=== PATIENT | male | born 1965 | race Caucasian/White ===

== ENCOUNTER 2019-10-07 21:07 | Emergency (ER) | payer SELFPAY ==
[2019-10-07 21:13] VITALS: BMI 28.1
[2019-10-07 21:17] VITALS: BP 182/128; PULSE 96; RESP 16; TEMP 36.3; O2SAT 94
--- NOTE | 2019-10-07 21:20 | XR_ITS ---
WS: [id number] Portable AP upright chest, 10/07/2019 Clinical Data: Burn Comparison: Chest, 12/07/2018. Findings: No nodules, masses or effusions are seen. The heart is normal. The pulmonary vascularity is not increased. No pneumonia or pneumothorax is seen. The aortic arch and descending aorta minimally tortuous. There is a small plate in the right mandible. XR/XR chest 1V portable [id number] Impression: Atherosclerosis.
[2019-10-07] MEDS: lactated ringers 1,000 ML 999 ML IV ×2 (21:26→21:35)
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
[2019-10-07 21:35] VITALS: RESP 20
[2019-10-07] MEDS: morphine 4 mg/mL SDV 1 mL IVP (21:35)
[2019-10-07] MEDS: ondansetron 2 mg/ML SDV 2 mL 4 MG IVP (21:36)
[2019-10-07 21:54] LABS: Basophils # 0.1 10^3/uL (0.0-0.1); Basophils % 0.5 %; Eosinophils # 0.1 10^3/uL (0.0-0.8); Eosinophils % 0.9 %; Hematocrit 46.3 % (42.0-52.0); Hemoglobin 15.1 g/dL (11.7-16.6); Lymphocytes # 1.6 10^3/uL (0.8-4.8); Lymphocytes % 15.7 %; Mean Corpuscular HGB Conc 32.6 g/dL (30.0-36.0); Mean Corpuscular Hemoglobin 30.6 pg (28.0-34.0); Mean Corpuscular Volume 93.9 fL (80-94); Mean Platelet Volume 10.2 fL (7.4-10.4); Monocytes # 0.6 10^3/uL (0.2-0.9); Monocytes % 6.1 %; Neutrophils # 7.8 10^3/uL (1.8-7.7); Neutrophils % 76.2 %; Nucleated Red Blood Cells % 0 %; Platelet Count 246 10^3/cmm (130-400); Red Blood Count 4.93 10^6/uL (4.1-5.3); Red Cell Distribution Width 13.6 % (12.1-15.1); White Blood Count 10.3 10^3/uL (4.0-10.0)
[2019-10-07 21:59] VITALS: BP 167/102; PULSE 100; RESP 20; O2SAT 97
[2019-10-07 22:05] LABS: ABG PCO2 40.6 mmHg (35-45); ABG PH Result 7.35 (7.35-7.45); Arterial Blood Gas Hematocrit 46.7 % (42-52); Base Excess ABG -2.9 mmol/L (-2.0-2.0); Blood Gas Sample Site Brachial, right; Blood Gas Sample Type Arterial; Carboxyhemoglobin 5.5 %THgb (0.4-20.1); HCO3 ABG 22.5 mmol/L (22-26); Ionized Calcium Level - ABG 1.2 mmol/L (1.1-1.4); Methemoglobin 0.9 % (0.4-1.5); Oxygen Device ROOM AIR; Oxygen Saturation ABG 96.2; Potassium Level - ABG 3.9 mmol/L (3.5-5.0); Total Hemoglobin 15.2 g/dL (14-18)
[2019-10-07 22:13] VITALS: BP 167/107; PULSE 92; RESP 20; O2SAT 95
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
== END 2019-10-07 22:15 | disposition short-term general hospital (02) ==
LOC: ER 21:58
PROVIDERS: Emergency Provider Emergency Medicine
DX: T20.09XA Burn of unspecified degree of multiple sites of head, face, and neck, initial encounter (principal); T21.01XA Burn of unspecified degree of chest wall, initial encounter; T22.00XA Burn of unspecified degree of shoulder and upper limb, except wrist and hand, unspecified site, initial encounter; X08.8XXA Exposure to other specified smoke, fire and flames, initial encounter; I10 Essential (primary) hypertension; I25.2 Old myocardial infarction; F17.210 Nicotine dependence, cigarettes, uncomplicated; Z98.61 Coronary angioplasty status
CPT/HCPCS: 12345; 36415; 36600; 71045; 80051; 82810; 83986; 85025; 96365; 96366; 96368; 96375; 99282; 99285; J2270; J2405

== ENCOUNTER → 2020-03-09 14:04 | Outpatient (BNVA) | payer MEDICAID, SELFPAY | PROVIDERS: Visit Provider Nurse Practitioner Family | DX: Z11.59 Encounter for screening for other viral diseases (principal); Z20.828 Contact with and (suspected) exposure to other viral communicable diseases; R05 Cough | CPT/HCPCS: 87635 ==

== ENCOUNTER → 2020-03-30 10:43 | Outpatient (BNVA) | payer MEDICAID, SELFPAY | PROVIDERS: Visit Provider Nurse Practitioner Family | DX: I10 Essential (primary) hypertension (principal); Z79.899 Other long term (current) drug therapy; Z12.5 Encounter for screening for malignant neoplasm of prostate; E78.5 Hyperlipidemia, unspecified; M79.642 Pain in left hand; Z12.11 Encounter for screening for malignant neoplasm of colon | CPT/HCPCS: 80053; 80061; 85025; G0103 ==

== ENCOUNTER → 2020-04-27 09:54 | Outpatient (BNVA) | payer SELFPAY | PROVIDERS: Visit Provider Surgery | DX: Z12.11 Encounter for screening for malignant neoplasm of colon (principal); Z20.828 Contact with and (suspected) exposure to other viral communicable diseases | CPT/HCPCS: 87635 ==

== ENCOUNTER 2020-05-03 07:24 | Day surgery (SDC) | payer MEDICAID, SELFPAY ==
[2020-04-28 14:31] VITALS: BMI 27.5
[2020-05-03 07:41] VITALS: BP 155/103; PULSE 62; RESP 18; TEMP 36.3; O2SAT 97
[2020-05-03] MEDS: sodium chloride 0.9% 1,000 ML 30 ML IV (07:54)
--- NOTE | 2020-05-03 08:31 | ANES.PREANE2 ---
Pre-Anesthetic Assessment Pre-Anesthetic Assessment: Height/Weight: Height 1.91 m Weight 99.79 kg Temp Pulse Resp BP Pulse Ox 97.3 F L 62 18 155/103 97 05/03/20 07:41 05/03/20 07:41 05/03/20 07:41 05/03/20 07:41 05/03/20 07:41 Preop Diagnosis: panendoscopy Proposed Procedure: Operation Date: 05/03/20 08:30 Proposed Procedures p Colonoscopy 60518 Z12.11(Not Applicable) - Rebel Larkin MD Familial anesthetic complications: None Was Beta James taken within 24 hours: Yes Last intake: Intake Last Liquid Date 05/02/20 Last Liquid Time 22:00 Last Solid Date 05/01/20 Last Solid Time 20:00 Social: Social History: Tobacco Exam: Pre-Anes Outpt Exam: alert, oriented x 3, clear to auscultation bilaterally and regular rate & rhythm Airway: Cervical ROM: WNL MP: 3 Additional comments: extremely poor dentition, visible decay, broken teeth, missing teeth Pulmonary: Pulmonary: COPD CV/HEM: CV/HEM: CAD and HTN Comments: PTCA 2 years ago -off plavix since ischemic cardiomyopathy Anesthetic Plan: ASA status: 3 Anesthesia: MAC Risk of > 500 ml blood loss (7ml/kg in children): No Meds/Allergies Current Medications: Current Medications Generic Name Dose Route Start Last Admin Trade Name Freq PRN Reason Stop Dose Admin Sodium Chloride 1,000 mls @ 30 ml s/hr 05/03/20 07:30 05/03/20 07:54 Sodium Chloride 0.9% IV 05/04/20 07:29 30 mls/hr .Q24H CELIA Administration PFSH Anesthesia PFSH: Medical History ASHD (arteriosclerotic heart disease) HTN (hypertension) Ischemic cardiomyopathy Myocardial infarction Surgical History H/O circumcision H/O craniotomy asiatic meningitis H/O inguinal hernia repair S/P PTCA (percutaneous transluminal coronary angioplasty) Family History Other CAD (coronary artery disease) Hypertension Denies family history of Diabetes Anesthesia complication Bleeding disorder Cancer Social History Smoking and tobacco status: current every day smoker Alcohol intake: current Alcohol intake frequency: 0-2 Drinks per Day Alcohol type: beer Adopted: No Caregiver/support person: No Lives independently: No Household members: spouse Marital status: History of recent travel: No Sexually active: Yes Current gender identity: Male Data Anesthesia Cardiac Studies: No Data to Display
--- NOTE | 2020-05-03 09:08 | W.PM.OPSFHP ---
Same Day Surgery H&P Indication for Procedure/HPI DATE OF PROCEDURE: May 03, 2020 CHIEF COMPLAINT/INDICATIONFOR SURGICAL PROCEDURE: EGD and colonoscopy PREOP DIAGNOSIS: panendoscopy PLANNED PROCEDRUE: Operation Date: 05/03/20 08:30 Proposed Procedures p Colonoscopy 35894 Z12.11(Not Applicable) - Rebel Larkin MD Medications/Allergies* Home Medications Medication Instructions Recorded Confirmed Type ibuprofen 800 mg PO Q6H 04/28/20 04/28/20 History Allergies/Adverse Reactions Allergy/AdvReac Type Severity Reaction Status Date / Time No Known Allergies Allergy Verified 04/28/20 14:19 Current Medications: Generic Name Dose Route Start Last Admin Trade Name Freq PRN Reason Stop Dose Admin Sodium Chloride 1,000 mls @ 30 mls/hr 05/03/20 07:30 05/03/20 07:54 Sodium Chloride 0.9% IV 05/04/20 07:29 30 mls/hr .Q24H CELIA Administration Pertinent History/Comorbid Conditions* Medical History (Updated 04/04/20 @ 13:16 by ANGELICA Cueto) ASHD (arteriosclerotic heart disease) HTN (hypertension) Ischemic cardiomyopathy Myocardial infarction Surgical History (Updated 04/01/20 @ 10:14 by Rebel Larkin MD) H/O circumcision H/O craniotomy asiatic meningitis H/O inguinal hernia repair S/P PTCA (percutaneous transluminal coronary angioplasty) Family History (Updated 04/01/20 @ 10:01 by Susu Thomas LPN) CAD (coronary artery disease) Hypertension Denies family history of Diabetes Anesthesia complication Bleeding disorder Cancer Social History Smoking and tobacco status: current every day smoker Alcohol intake: current Alcohol intake frequency: 0-2 Drinks per Day Alcohol type: beer Adopted: No Caregiver/support person: No Lives independently: No Household members: spouse Marital status: History of recent travel: No Sexually active: Yes Current gender identity: Male Pertinent Exam Findings alert, oriented x 3 and regular rate & rhythm Recommendations Surgery/Procedure today Coding Level of Care Code Acute Monorail Charger Operator for Althea Ayala
[2020-05-03 10:51] VITALS: BP 127/78; PULSE 63; RESP 16; TEMP 36.3; O2SAT 96
[2020-05-03 11:06] VITALS: BP 167/99; PULSE 60; RESP 16; O2SAT 98
--- NOTE | 2020-05-03 18:54 | ANE.PACU2 ---
Inpatient post-anesthesia follow up: Airway intact: Yes Vital signs: Temperature 97.3 F Pulse Rate 60 Respiratory Rate 16 Blood Pressure 167/99 Pulse Oximetry 98 Oxygen Delivery Me thod Room Air Oxygen Flow Rate Fraction of Inspir ed Oxygen Hydration adequate: Yes Nausea and vomiting: No Pain level: 2 Mental status: Baseline
== END 2020-05-03 11:39 | disposition home or self-care (01) ==
PROVIDERS: PCP Nurse Practitioner Family; Visit Provider Surgery
PROC: 0DJD8ZZ Inspection of Lower Intestinal Tract, Via Natural or Artificial Opening Endoscopic (ICD-10-PCS; CPT 45378; principal; 2020-05-03 08:30)
DX: Z12.11 Encounter for screening for malignant neoplasm of colon (principal); D12.3 Benign neoplasm of transverse colon; D12.8 Benign neoplasm of rectum; K57.30 Diverticulosis of large intestine without perforation or abscess without bleeding; I10 Essential (primary) hypertension; I25.2 Old myocardial infarction; F17.210 Nicotine dependence, cigarettes, uncomplicated; Z82.49 Family history of ischemic heart disease and other diseases of the circulatory system; Z83.3 Family history of diabetes mellitus; J44.9 Chronic obstructive pulmonary disease, unspecified; I25.10 Atherosclerotic heart disease of native coronary artery without angina pectoris; Z79.02 Long term (current) use of antithrombotics/antiplatelets
CPT/HCPCS: 12345; 45378; 45380; 45385; 88305; J2704; J7030

== ENCOUNTER 2020-07-28 08:40 | Outpatient (CLI) | payer MEDICAID, SELFPAY ==
--- NOTE | 2020-07-28 08:45 | USCV_ITS ---
Melchor Chaparro Age: 55 Gender: M : 1965 Exam Date: 07/28/2020 09:09 Ordering Phys: Urbano Carlton M.D ([email or web address]) Technologist: Madelyn Pandey Exam Location: [facility] [place] Indication: CM BP: / HR: 79 Rhythm: Other Technical Quality: Fair MEASUREMENTS (Male / Female) Normal Values 2D ECHO LV Diastolic Diameter PLAX 5.5 cm 4.2 - 5.9 / 3.9 - 5.3 cm LV Systolic Diameter PLAX 4.4 cm LV Chamber Size 5.0 cm IVS Diastolic Thickness 2.0 cm 0.6 - 1.0 / 0.6 - 0.9 cm IVS Systolic Thickness 2.0 cm LVPW Diastolic Thickness 1.1 cm 0.6 - 1.0 / 0.6 - 0.9 cm LVPW Systolic Thickness 1.6 cm RV Chamber Size 2.9 cm LVOT Diameter 2.0 cm LV Ejection Fraction 2D Teich 41.5 % LV Ejection Fraction MOD 2C 28.9 % LV Ejection Fraction 2C AL 27.6 % LA Diameter 3.8 cm LA Width 3.3 cm LA Height 4.5 cm RA Width 3.7 cm RA Height 3.9 cm Aorta at Sinotubular Diameter 3.2 cm M-MODE LV Diastolic Diameter MM 6.4 cm 4.2 - 5.9 / 3.9 - 5.3 cm LV Systolic Diameter MM 4.6 cm LV Ejection Fraction MM Teich 54.9 % IVS Diastolic Thickness MM 1.3 cm 0.6 - 1.0 / 0.6 - 0.9 cm IVS Systolic Thickness MM 0.8 cm LVPW Diastolic Thickness MM 1.0 cm 0.6 - 1.0 / 0.6 - 0.9 cm LVPW Systolic Thickness MM 1.7 cm RV Diastolic Diameter MM 1.3 cm Aortic Annulus Diameter 3.6 cm LA Ao Ratio MM 1.2 MV E Point Septal Separation 0.5 cm DOPPLER AV Peak Velocity 124.0 cm/s LVOT Peak Velocity 99.0 cm/s AV Area Cont Eq vti 2.2 cm squared AV Area Cont Eq pk 2.5 cm squared MV Area PHT 2.7 cm squared Mitral E to A Ratio 1.5 MV E' Velocity 39.0 cm/s Mitral E to MV E' Ratio 8.0 Mitral E to LV E' Lateral Ratio 8.0 Mitral E to LV E' Septal Ratio 8.0 TV Peak E Velocity 38.0 cm/s Right Atrial Pressure 3.0 mmHg PV Peak Velocity 89.0 cm/s RV Acceleration Time 0.1 s RV Ejection Time 0.2 s RV AcT/ET 0.3 FINDINGS Left Ventricle Left ventricle is mildly dilated. LV systolic function is normal with EF of 50-55% with no regional wall motion abnormalities. Normal diastolic filling pattern. Right Ventricle The right ventricle is normal in size and function. Right Atrium The right atrium is normal in size. Left Atrium The left atrium is normal in size. Mitral Valve Structurally normal mitral valve without significant stenosis or prolapse. There is no mitral regurgitation. Aortic Valve Structurally normal aortic valve without significant sclerosis or stenosis. There is mild aortic regurgitation. Tricuspid Valve Structurally normal tricuspid valve without significant stenosis or regurgitation. Insufficient TR jet to calculate RVSP Pulmonic Valve Structurally normal pulmonic valve without significant stenosis. There is no pulmonic regurgitation. Pericardium Normal pericardium without effusion. Aorta Ascending aorta is mildly dilated CONCLUSIONS LV systolic function is normal with EF of 50-55% Diastolic function is normal Mild aortic regurgitation No comparison studies are available Urbano Carlton MD (Electronically Signed) Final Date: 29 July 2020 17:32 S
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
== END 2020-07-28 08:41 | disposition home or self-care (01) ==
LOC: US 08:43
PROVIDERS: PCP Nurse Practitioner Family; Visit Provider Internal Medicine
DX: M79.604 Pain in right leg (principal); M79.605 Pain in left leg; I25.5 Ischemic cardiomyopathy; I35.1 Nonrheumatic aortic (valve) insufficiency
CPT/HCPCS: 93306; 93925